=== PATIENT | male | born 1950 | race Two or more races ===

== ENCOUNTER 2016-06-16 17:00 | Emergency (ER) | payer OTHER ==
[~2016-06-16] VITALS: Ht 170.2 cm; Wt 80.7 kg
[~2016-06-16 17:00] MED LIST: DEC150 PO; GLIMEPIRIDE1 MG PO; KEPPRA500 MG PO; MAGNESIUM OXID400 MG PO; METFORMIN HCL1000 M1 PO; ZES20 PO
[2016-06-16 18:39] LABS: BASOPHIL % 0.9 % (0-2); CALCIUM 9.3 mg/dL (8.5-10.1); CARBON DIOXIDE 20.8 mmol/L (21-32); CREATININE SERUM 1.9 mg/dL (0.7-1.3); PLATELET COUNT 294 x10^3mcL (130-400); POTASSIUM SERUM 4.8 mmol/L (3.5-5.1)
[2016-06-16 18:42] LABS: RED CELL DISTRIBUTION WIDTH 15.4 % (11.5-14.5)
[2016-06-16 18:44] LABS: ALBUMIN 4.1 g/dL (3.4-5.0); BILIRUBIN TOTAL 0.8 mg/dL (0.20-1.00)
[2016-06-16 20:55] VITALS: BP 177/70
== END 2016-06-16 20:55 | disposition home or self-care (01) ==
LOC: ED 17:00
DX: E87.1 Hypo-osmolality and hyponatremia (principal); I10 Essential (primary) hypertension; E11.9 Type 2 diabetes mellitus without complications; Z79.84 Long term (current) use of oral hypoglycemic drugs
CPT/HCPCS: J7030

== ENCOUNTER 2018-06-05 07:15 | Inpatient (IN) | payer OTHER ==
[~2018-06-05] VITALS: Ht 167.6 cm; Wt 83.1 kg
[2018-06-05 08:49] LABS: BASOPHIL % 0.1 % (0-2); PLATELET COUNT 145 x10^3mcL (130-400)
[2018-06-05 08:49] LABS: microscopic required? YES; urine erythrocyte NEGATIVE (NEGATIVE)
[2018-06-05 08:55] LABS: RED CELL DISTRIBUTION WIDTH 15.6 % (11.5-14.5)
[2018-06-05 09:11] LABS: CALCIUM 8.9 mg/dL (8.5-10.1); CARBON DIOXIDE 19.2 mmol/L (21-32); CREATININE SERUM 2.3 mg/dL (0.7-1.3); POTASSIUM SERUM 4.5 mmol/L (3.5-5.1)
[2018-06-05 09:15] LABS: BILIRUBIN TOTAL 1.7 mg/dL (0.20-1.00); MAGNESIUM 1.8 mg/dL (1.8-2.4); TOTAL PROTEIN, SERUM 7.6 g/dL (6.4-8.2)
[2018-06-05 09:16] LABS: ALBUMIN 3.3 g/dL (3.4-5.0)
[2018-06-05 10:12] LABS: rbc morphology (normal/abnorm) NORMAL (NORMAL)
[2018-06-05 14:40] VITALS: BP 97/48
[2018-06-05 17:48] VITALS: BP 97/48
[2018-06-05 18:00] VITALS: BP 92/42
[2018-06-05 20:27] VITALS: BP 111/51
[2018-06-06 06:11] VITALS: BP 116/64
[2018-06-06 07:36] LABS: CALCIUM 8.7 mg/dL (8.5-10.1); CARBON DIOXIDE 21.2 mmol/L (21-32); CREATININE SERUM 2.9 mg/dL (0.7-1.3); POTASSIUM SERUM 3.5 mmol/L (3.5-5.1)
[2018-06-06 07:38] LABS: BASOPHIL % 0.5 % (0-2); PLATELET COUNT 136 x10^3mcL (130-400)
[2018-06-06 07:40] LABS: RED CELL DISTRIBUTION WIDTH 15.8 % (11.5-14.5)
[2018-06-06 09:17] VITALS: BP 120/64
[2018-06-06 12:32] VITALS: BP 123/69
[2018-06-06 21:28] VITALS: BP 118/59
[2018-06-07 05:58] VITALS: BP 112/61
[2018-06-07 10:00] VITALS: BP 117/64
[2018-06-07 11:19] LABS: BASOPHIL % 0.8 % (0-2); PLATELET COUNT 149 x10^3mcL (130-400)
[2018-06-07 11:23] LABS: RED CELL DISTRIBUTION WIDTH 15.4 % (11.5-14.5)
[2018-06-07 11:29] LABS: CALCIUM 8.6 mg/dL (8.5-10.1); CARBON DIOXIDE 19.9 mmol/L (21-32); CREATININE SERUM 2.8 mg/dL (0.7-1.3); POTASSIUM SERUM 4.2 mmol/L (3.5-5.1)
[2018-06-07 12:35] VITALS: BP 158/62
[2018-06-07 16:32] VITALS: BP 135/55
[2018-06-07 19:38] VITALS: BP 135/74
[2018-06-08 06:32] VITALS: BP 147/67
[2018-06-08 06:47] LABS: CALCIUM 8.3 mg/dL (8.5-10.1); CARBON DIOXIDE 19.3 mmol/L (21-32); CREATININE SERUM 2.5 mg/dL (0.7-1.3); POTASSIUM SERUM 4.7 mmol/L (3.5-5.1)
[2018-06-08 08:07] VITALS: BP 143/70
[2018-06-08 08:59] LABS: PLATELET COUNT 111 x10^3mcL (130-400); RED CELL DISTRIBUTION WIDTH 15.7 % (11.5-14.5)
[2018-06-08 11:32] LABS: BASOPHIL % 0.6 % (0-2)
[2018-06-08 11:33] LABS: PLATELET COUNT 129 x10^3mcL (130-400); RED CELL DISTRIBUTION WIDTH 15.8 % (11.5-14.5)
[2018-06-08 11:46] VITALS: BP 133/54
[2018-06-08 13:01] LABS: ATYPICAL LYMPH 2 %; BAND NEUTROPHIL 7 % (0-10); SEGMENTED NEUTROPHILS 33 % (37-75)
[2018-06-08 13:02] LABS: MONOCYTE 21 % (0-7)
[2018-06-08 13:03] LABS: PLATELET MORPHOLOGY PLATELETS DECREASED
[2018-06-08 13:19] LABS: rbc morphology (normal/abnorm) ABNORMAL (NORMAL)
[2018-06-08 16:46] VITALS: BP 122/57
[2018-06-08 17:42] LABS: BILIRUBIN DIRECT 0.54 mg/dL (0.0-0.2); BILIRUBIN TOTAL 0.9 mg/dL (0.20-1.00)
[2018-06-08 17:45] LABS: ALBUMIN 2.7 g/dL (3.4-5.0)
[2018-06-08 21:15] VITALS: BP 149/77
[2018-06-09 05:18] VITALS: BP 120/49
[2018-06-09 06:25] LABS: BASOPHIL % 0.4 % (0-2); PLATELET COUNT 150 x10^3mcL (130-400)
[2018-06-09 06:32] LABS: CALCIUM 8.7 mg/dL (8.5-10.1); CARBON DIOXIDE 19.7 mmol/L (21-32); CREATININE SERUM 2.3 mg/dL (0.7-1.3); POTASSIUM SERUM 3.7 mmol/L (3.5-5.1)
[2018-06-09 07:03] LABS: RED CELL DISTRIBUTION WIDTH 15.6 % (11.5-14.5)
[2018-06-09 08:04] VITALS: BP 120/49
[2018-06-09 08:34] LABS: CREATININE UR 33.3 mg/dL
[2018-06-09 08:50] VITALS: BP 129/54
[2018-06-09 12:34] VITALS: BP 92/63
[2018-06-09 12:53] VITALS: BP 147/64
[2018-06-09 17:05] VITALS: BP 105/57
[2018-06-10 06:14] LABS: BASOPHIL % 0.5 % (0-2); PLATELET COUNT 142 x10^3mcL (130-400)
[2018-06-10 06:31] LABS: CALCIUM 7.8 mg/dL (8.5-10.1); CARBON DIOXIDE 17.3 mmol/L (21-32); POTASSIUM SERUM 4.5 mmol/L (3.5-5.1)
[2018-06-10 06:45] LABS: RED CELL DISTRIBUTION WIDTH 15.3 % (11.5-14.5)
[2018-06-10 09:25] VITALS: BP 117/64
[2018-06-10] MEDS ORDERED: ZOF4 PO (12:08)
[2018-06-10] MEDS ORDERED: MEGL PO (12:08)
[2018-06-10] MEDS ORDERED: SYNTHROID0.05 MG PO (12:08)
[2018-06-10 12:38] VITALS: BP 117/64
[2018-06-12 13:52] LABS: microalbumin:creatinine ratio 434.6 (0.0-30.0)
== END 2018-06-10 14:39 | disposition home or self-care (01) | DRG 388 ==
LOC: ED 07:15 → DU 12:24
PROVIDERS: Emergency Medicine; Internal Medicine; Internal Medicine Gastroenterology; Specialist; ADMIT Family Medicine
DX: K56.7 Ileus, unspecified (principal); N17.0 Acute kidney failure with tubular necrosis; E87.1 Hypo-osmolality and hyponatremia; K92.1 Melena; E87.2 Acidosis; E86.0 Dehydration; R53.1 Weakness; I12.9 Hypertensive chronic kidney disease with stage 1 through stage 4 chronic kidney disease, or unspecified chronic kidney disease; E11.22 Type 2 diabetes mellitus with diabetic chronic kidney disease; N18.3 Chronic kidney disease, stage 3 (moderate); D63.1 Anemia in chronic kidney disease; R16.2 Hepatomegaly with splenomegaly, not elsewhere classified; E03.9 Hypothyroidism, unspecified; Z79.84 Long term (current) use of oral hypoglycemic drugs; Z53.29 Procedure and treatment not carried out because of patient's decision for other reasons
CPT/HCPCS: 82962; 87046; 87046-59; 97112-GP; 97530-GP; C9113; J0696; J1650; J1940; J1956; J2405; J2765; J3480; J3490; J7030; J7042; J7620; Q0092

== ENCOUNTER 2020-01-08 21:33 | Emergency (ER) | payer OTHER ==
[~2020-01-08] VITALS: Ht 167.6 cm; Wt 95.3 kg
[~2020-01-08 21:33] MED LIST changes: +MEGL PO; +SYNTHROID0.05 MG PO; +ZOF4 PO
[2020-01-08 21:40] VITALS: BP 56/18
[2020-01-08 21:50] VITALS: Ht 167.6 cm; Wt 95.3 kg
[2020-01-08 23:00] VITALS: BP 39/19
== END 2020-01-09 03:31 | disposition expired ==
LOC: ED 21:33
DX: I46.9 Cardiac arrest, cause unspecified (principal); Z20.828 Contact with and (suspected) exposure to other viral communicable diseases
CPT/HCPCS: 31500; 36600; 83880; 85378; J0171; J3490; J7050